=== PATIENT | male | born 1975 | race Caucasian/White ===

== ENCOUNTER → 2016-05-26 | Outpatient (CLI) | payer BC ==
[~2016-05-26] MED LIST: CIPR500T4 PO; HYDR-3820 PO; NAPR500T PO
--- NOTE | 2016-05-26 14:41 | Diagnostic Imaging Report ---
PROCEDURE: MRI lumbar spine. TECHNIQUE: Multiplanar, multisequence MRI of the lumbar spine was performed without contrast. INDICATION: Low back pain. FINDINGS: The alignment of the posterior spinal line is satisfactory. The vertebral body heights are preserved. There is mild disc height loss at the L5/S1 level. There is disc desiccation also seen at this level. There are Schmorl's nodes along the inferior endplates of L4, T12, and T11 vertebral bodies and upper endplate of T12. No suspicious marrow signal abnormality is seen otherwise. There is mild facet arthropathy and facet effusions seen around the lower lumbar spine levels. The cauda equina and conus medullaris appear grossly unremarkable. T11/12: No significant abnormality. T12/L1: No disc herniation, no spinal canal or foraminal stenosis. L1/2: No disc herniation, no spinal canal or foraminal stenosis. L2/3: No disc herniation; there is mild facet hypertrophy. No spinal canal or foraminal stenosis. L3/4: No disc herniation. There is mild facet hypertrophy. No central canal, lateral recess, or foraminal stenosis. L4/5: No disc herniation; there is mild facet hypertrophy. No central canal, lateral recess, or foraminal stenosis. L5/S1: There is a mild disc bulge with superimposed prominent left paracentral disc extrusion that has a mildly caudally migrated component measuring 8 mm transversely, 1 cm craniocaudally, and 6 mm anteroposteriorly. There is [id number] facet and ligamentum flavum thickening. The extruded disc is abutting the descending S1 nerve root in the right lateral recess, which is mildly narrowed. There is minimal narrowing of the left lateral recess. No central canal stenosis. The neural foramina demonstrate bilateral narrowing, mild on the right side and moderate on the left. IMPRESSION: There is a disc bulge and superimposed right paracentral disc extrusion at L5/S1. There is bilateral mild narrowing of the lateral recess, more prominent on the right side. There is also bilateral almo-uv-kgiixiin foraminal stenosis at this level. Dictated by: Dictated on workstation # [id number]
== END ==
LOC: RAD 13:24
PROVIDERS: ATTEND Family Medicine
DX: M54.41 Lumbago with sciatica, right side (principal)
CPT/HCPCS: 72148

== ENCOUNTER 2016-07-02 12:47 | Outpatient (RCR) | payer BC | END 2016-07-02 13:47 | disposition home or self-care (01) | PROVIDERS: ATTEND Family Medicine | DX: M54.5 Low back pain (principal) ==

== ENCOUNTER 2018-10-18 10:30 | Emergency (ER) | payer SELFPAY ==
[~2018-10-18] VITALS: Ht 180.3 cm; Wt 83.9 kg
[~2018-10-18 10:30] MED LIST changes: +NAPR-1071 PO; -NAPR500T PO
--- OUTSIDE RECORDS SUMMARY | 2018-10-18 10:36 | XMS REPORT | Continuity of Care Document ---
Author Organization Unknown Address Unknown Allergies Active Description Code Type Severity Reaction Onset Reported/Identified Relationship to Patient Clinical Status Yes No Known Drug Allergies [id number] Drug Allergy Unknown N/A 09/11/2015 Medications There is no data. Problems Date Dx Coded Attending Type Code Diagnosis Diagnosed By 03/25/1346 DENI JONES MD Ot M54.5 LOW BACK PAIN 09/11/[address] MD, Ot N13.2 HYDRONEPHROSIS WITH RENAL AND URETERAL C 09/12/[address] MD, Ot N13.2 HYDRONEPHROSIS WITH RENAL AND URETERAL C 05/20/2016 DENI JONES MD R Ot M54.5 LOW BACK PAIN 05/20/2016 DENI JONES MD R Ot M54.5 LOW BACK PAIN 05/26/2016 Ot 719.42 JOINT PAIN-UP/ARM 06/10/2016 DENI JONES MD R Ot M54.5 LOW BACK PAIN 06/10/2016 DENI JONES MD R Ot M54.40 LUMBAGO WITH SCIATICA, UNSPECIFIED SIDE 07/02/2016 DENI JONES MD R Ot M54.5 LOW BACK PAIN 08/27/2016 DENI JONES MD R Ot M54.41 LUMBAGO WITH SCIATICA, RIGHT SIDE 09/23/2016 DENI JONES MD R Ot M54.41 LUMBAGO WITH SCIATICA, RIGHT SIDE Procedures There is no data. Results There is no data. Encounters ACCT No. Visit Date/Time Discharge Status Pt. Type Provider Facility Loc./Unit Complaint [id number] 07/02/2016 12:47:00 07/02/2016 13:47:00 DIS Outpatient DENI JONES MD [facility] REHAB ACUTE BILATERAL LBP WITH SCIATICA LATERALLY [id number] 05/26/2016 13:24:00 05/26/2016 23:59:59 CLS Outpatient ROBERT MANNING, DENI Navarro [facility] RAD LOW BACK PAIN [id number] 09/11/2015 06:51:00 09/11/2015 23:59:59 CLS Emergency ARIANA MANNING, THEODORE [facility] ER POSS KIDNEY STONE [id number] 08/09/2012 11:31:00 Document Registration
[2018-10-18] MEDS ORDERED: CEPH-507 PO (11:25)
--- NOTE | 2018-10-18 11:26 | ED Integumentary General ---
General Chief Complaint: Skin/Wound Problems Stated Complaint: POISON FRANCO Nursing Triage Note: rash with blisters on posterior neck, above left eye and inside of right calf. pt was exposed to possible posion franco on wednesday. pt states he has had posion franco before and requires a steroid shot. pt denies soa or difficulty breathing. pt states he has had hydrocortisone cream without improvement. blisters and weeping noted from posterior neck. Source: patient Exam Limitations: no limitations History of Present Illness Date Seen by Provider: Oct 18, 2018 Time Seen by Provider: 11:22 Initial Comments To ER per private vehicle with reports of poison franco. This began yesterday, he played golf this weekend. He has quite a bit of weeping and oozing from the back of his neck and another lesion similar to the medial right calf. Timing/Duration: yesterday Severity: moderate Location: extremities Associated Symptoms: blisters Allergies and Home Medications Allergies Coded Allergies: No Known Drug Allergies (Unverified , 09/11/15) Home Medications Ciprofloxacin HCl 500 Mg Tablet, 500 MG PO BID Prescribed by: THEODORE LANE on 09/11/15 0859 Hydrocodone/Acetaminophen 1 Each Tablet, 1 EACH PO Q6H PRN for PAIN Prescribed by: THEODORE LANE on 09/11/15 0859 Naproxen 500 Mg Tablet, 500 MG PO BID Prescribed by: THEODORE LANE on 09/11/15 0859 Patient Home Medication List Home Medication List Reviewed: Yes Review of Systems Review of Systems Constitutional: see HPI EENTM: see HPI Respiratory: no symptoms reported Cardiovascular: no symptoms reported Genitourinary: no symptoms reported Musculoskeletal: no symptoms reported Skin: see HPI Psychiatric/Neurological: No Symptoms Reported Endocrine: No Symptoms Reported Past Lksraea-Vktynd-Irvouh Hx Patient Social History Alcohol Use: Rarely Uses Recreational Drug Use: No Smoking Status: Current Everyday Smoker Type Used: Cigarettes Recent Foreign Travel: No Contact w/Someone Who Travel: No Recent Infectious Disease Expo: No Physical Abuse: No Sexual Abuse: No Mistreated: No Fear: No Past Medical History Reproductive Disorders: No Sexually Transmitted Disease: No Family Medical History No Pertinent Family Hx Physical Exam Vital Signs Vital Signs - First Documented 10/18/18 11:08 Temp 97.6 Pulse 76 Resp 18 B/P (MAP) 137/88 (104) Pulse Ox 99 Capillary Refill : Less Than 3 Seconds General Appearance: WD/WN, no apparent distress HEENT: PERRL/EOMI, normal ENT inspection Respiratory: no respiratory distress, no accessory muscle use Neurologic/Psychiatric: alert, normal mood/affect, oriented x 3, abnormal cerebellar tests Skin: normal color, warm/dry Skin Problem Location: neck, other (erythematous papulovesicular cluster with w eeping of serous fluid to the posterior right neck measures about the size of the entire hand. A similar lesion to the medial right calf.) Progress/Results/Core Measures Results/Orders My Orders Orders - SARAVANAN CERVANTES APRN Betamethasone Acet/Na Phos Inj ([place] (10/18/18 11:30) Triamcinolone Acetonide Im (Kenalog-40) (10/18/18 11:30) Vital Signs/I&O 10/18/18 11:08 Temp 97.6 Pulse 76 Resp 18 B/P (MAP) 137/88 (104) Pulse Ox 99 Blood Pressure Mean: 104 Departure Communication (Admissions) Given the degree of bruising and weeping from the back of his neck I'll also prescribe Keflex to prevent secondary bacterial infection Impression Primary Impression: Contact dermatitis due to poison franco Disposition: 01 HOME, SELF-CARE Condition: Stable Departure-Patient Inst. Decision time for Depature: 11:24 Referrals: DENI JONES MD (PCP/Family) Primary Care Physician Patient Instructions: Poison Franco Add. Discharge Instructions: 1. Keep this dry 2. The steroids are not curative but they will speed up improvement. Topical calamine lotion would be fine. Antibiotics as directed. All discharge instructions reviewed with patient and/or family. Voiced understanding. Scripts Cephalexin (Keflex) 500 Mg Capsule 500 MG PO TID, #15 CAP Prov: SARAVANAN CERVANTES APRN 10/18/18 Work/School Note: Work Release Form Date Seen in the Emergency Department: Oct 18, 2018 Return to Work: Oct 21, 2018 SARAVANAN CERVANTES APRN Oct 18, 2018 11:26
[2018-10-18] MEDS ORDERED: BETAMETHASONE ACE/NA PHOS 6 MG/ML (CELESTONE SOLUSPAN) IM SCH (11:30)
[2018-10-18] MEDS ORDERED: TRIAMCINOLONE ACET (KENALOG-40) 40 MG/ML 1 ML VIAL IM ONE (11:30)
[2018-10-18 11:43] VITALS: BP 137/88
== END 2018-10-18 11:43 | disposition home or self-care (01) ==
LOC: EDUNIT# 10:30 → ER 10:32
DX: L23.7 Allergic contact dermatitis due to plants, except food (principal); F17.210 Nicotine dependence, cigarettes, uncomplicated
CPT/HCPCS: 96372; 99284